=== PATIENT | female | born 1945 | race Caucasian/White ===

== ENCOUNTER 2017-10-14 08:24 | Inpatient (IN) | payer OTHER, MEDICARE ==
[~2017-10-14] VITALS: Ht 160 cm; Wt 76.8 kg
[~2017-10-14 08:24] MED LIST: ASPI81CH6 CHEW; CARV12.52 PO; LOSA25TA PO; OMEP20TA93 PO; VITA100064 PO
[2017-10-14 12:04] VITALS: BP 122/68; PULSE 71; RESP 18; TEMP 98.2; O2SAT 97
[2017-10-14] MEDS ORDERED: cloNIDine HCL 0.1 MG TAB PO PRN (12:45)
[2017-10-14] MEDS ORDERED: oxyCODONE/ACETAMINOPHEN 5 MG/325 MG TAB PO PRN (12:45)
[2017-10-14] MEDS ORDERED: METOCLOPRAMIDE HCL 10 MG/2 ML VIAL IV PUSH PRN (12:45)
[2017-10-14] MEDS ORDERED: LACTULOSE SYRUP 20 GM/30 ML CUP PO PRN (12:45)
[2017-10-14] MEDS ORDERED: SENNOSIDES 8.6 MG TAB PO PRN (12:45)
[2017-10-14] MEDS ORDERED: MAGNESIUM HYDROXIDE SUSP 30 ML CUP PO PRN (12:45)
[2017-10-14] MEDS ORDERED: BISACODYL 10 MG SUPP RECTAL PRN (12:45)
[2017-10-14] MEDS ORDERED: SODIUM CHLORIDE 0.9% FLUSH 10 ML FLUSH IV FLUSH PRN (12:45)
[2017-10-14] MEDS ORDERED: NALOXONE HCL 0.4 MG/ML AMP IV PUSH PRN (12:45)
[2017-10-14] MEDS ORDERED: MORPHINE SULFATE 2 MG/ML INJ IV PUSH PRN ×2 (12:45)
[2017-10-14] MEDS ORDERED: ONDANSETRON HCL 4 MG/2 ML VIAL IVP PRN (12:45)
[2017-10-14] MEDS ORDERED: oxyCODONE/ACETAMINOPHEN 10 MG/325 MG TAB PO PRN (12:45)
[2017-10-14] MEDS ORDERED: ACETAMINOPHEN 325 MG TAB PO PRN ×2 (12:45)
[2017-10-14] MEDS: PANTOPRAZOLE SOD 20 MG DELAYED RELEASE TAB PO SCH (13:52)
[2017-10-14] MEDS: ASPIRIN 81 MG CHEW TAB CHEW SCH (13:52)
[2017-10-14] MEDS: LOSARTAN 25 MG TAB PO SCH (13:52)
[2017-10-14] MEDS: ENOXAPARIN SODIUM 40 MG/0.4 ML SYRINGE SQ SCH (13:52)
[2017-10-14 14:36] LABS: TROPONIN I 0.03 NG/ML (0.02-0.05)
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
[2017-10-14 16:00] VITALS: PULSE 77
[2017-10-14 16:03] VITALS: BP 134/68; PULSE 78; RESP 18; TEMP 98.2; O2SAT 95
--- NOTE | 2017-10-14 16:35 | ECHRPT ---
Indication: CHEST PAIN CONCLUSIONS Normal left ventricular size with upper normal wall thickness. The left ventricular systolic functio n is normal with an estimated ejection fraction in the range of 60-65%. Normal wall motion. Normally functioning mitral valve bioprosthesis. Trace to mild mitral regurgitation. Normally functioning aortic valve bioprosthesis. There is mild tricuspid valve regurgitation. There is estimated sytolic pulmonary pressure is 60 mm Hg. BP: 122 / 68 HR: 71 Rhythm: MEASUREMENTS (Male / Female) Normal Values Technical Quality:Good 2D ECHO LV Diastolic Diameter PLAX 5.6 cm 4.2 - 5.9 / 3.9 - 5.3 cm LV Systolic Diameter PLAX 4.3 cm IVS Diastolic Thickness 1.0 cm 0.6 - 1.0 / 0.6 - 0.9 cm LVPW Diastolic Thickness 0.7 cm 0.6 - 1.0 / 0.6 - 0.9 cm LV Relative Wall Thickness 0.3 LA Systolic Diameter LX 3.9 cm 3.0 - 4.0 / 2.7 - 3.8 cm DOPPLER AV Peak Velocity 291.5 cm/s AV Peak Gradient 34.0 mmHg AV Mean Gradient 16.5 mmHg AV Velocity Time Integral 61.4 cm LVOT Peak Velocity 152.0 cm/s LVOT Peak Gradient 9.2 mmHg LVOT Velocity Time Integral 35.8 cm MV Peak Velocity 248.0 cm/s MV Peak Gradient 24.6 mmHg MV Mean Velocity 122.0 cm/s MV Mean Gradient 7.5 mmHg MV Area PHT 2.8 cm MR Peak Velocity 511.5 cm/s MR Peak Gradient 104.7 mmHg Mitral E Point Velocity 173.0 cm/s Mitral A Point Velocity 76.8 cm/s Mitral E to A Ratio 2.3 TR Peak Velocity 353.0 cm/s TR Peak Gradient 49.8 mmHg Right Atrial Pressure 10.0 mmHg Pulmonary Artery Systolic Pressu 59.8 mmHg Right Ventricular Systolic Press 59.8 mmHg FINDINGS LEFT VENTRICLE Normal left ventricular size with upper normal wall thickness. The left ventricular systolic functio n is normal with an estimated ejection fraction in the range of 60-65%. Normal wall motion. RIGHT VENTRICLE Normal right ventricular size and systolic function. LEFT ATRIUM The left atrial size is normal. RIGHT ATRIUM The right atrial size is normal. ATRIAL SEPTUM Normal atrial septal thickness without atrial level shunting by limited color doppler interrogation. AORTA The aortic root and proximal ascending aorta are normal in size on limited imaging. MITRAL VALVE Normally functioning mitral valve bioprosthesis. Trace to mild mitral regurgitation. AORTIC VALVE Normally functioning aortic valve bioprosthesis. TRICUSPID VALVE There is mild tricuspid valve regurgitation. There is estimated sytolic pulmonary pressure is 60 mm Hg. PULMONARY VALVE The pulmonary valve is not well visualized. VESSELS The inferior vena cava is normal in size. PERICARDIUM No pericardial effusion. Chencho Yañez MD (Electronically Signed) Final Date:14 October 2017 16:35
--- NOTE | 2017-10-14 16:35 | MB ---
cc: MARIA M RONQUILLO M.D. DATE OF CONSULTATION: 10/14/2017 REASON FOR CONSULTATION Chest pain, hypertension. HISTORY OF PRESENT ILLNESS The patient is a 72-year-old [place] female with a history of hypertension, hyperlipidemia, gastroesophageal reflux disease, diverticulosis, aortic and mitral valve replacements in 2013, who awoke this morning with a smothering sensation in her mid chest associated with fairly severe shortness of breath. She came to the emergency room in [place] where her blood pressure was found to be 240/140. She believes the chest discomfort, described as "tightness", lasted about 45 minutes. She denies any other recent chest pains. Her dyspnea has gradually resolved over the last few hours. In the last few days she has had possible paroxysmal nocturnal dyspnea. The patient denies dizziness, syncope, near-syncope, palpitations. Occasionally she experiences mild pedal edema. She reports compliance with medications and a no added salt diet. PAST MEDICAL HISTORY 1. Hypertension. 2. Hyperlipidemia. 3. Gastroesophageal reflux disease. 4. Diverticulosis, with a history of severe diverticulitis 2013, necessitating partial colectomy. 5. History of bioprosthetic mitral and aortic valve replacements 2013 in [place]. PAST SURGICAL HISTORY 1. Mitral and aortic bioprosthetic valve replacements 2013. 2. Partial colectomy 2013 for severe diverticulitis. 3. Cholecystectomy. 4. Total hysterectomy. MEDICATIONS Her cardiac medications at home: 1. Carvedilol 12.5 mg daily. 2. Losartan 25 mg daily. 3. Aspirin 81 mg daily. ALLERGIES IODINE AND PENICILLIN. FAMILY HISTORY There is no significant family history of early myocardial infarction. SOCIAL HISTORY The patient denies any history of alcohol or tobacco abuse. REVIEW OF SYSTEMS As in the history of present illness, otherwise negative or noncontributory. She also denies headache, visual changes, unilateral weakness or numbness, abdominal pain, melena, dyspepsia, bright red blood per rectum. PHYSICAL EXAMINATION VITAL SIGNS: Her blood pressure is 122/68 with a pulse of 70, respirations 18. GENERAL: In general she is a well-developed, well-nourished [place] female in no acute distress. HEENT: Jugular venous pressure is normal. Carotid pulses are 2+ bilaterally and without bruits. CHEST: Examination of the chest reveals clear lung mohan. CARDIAC: On cardiac examination she has a regular rhythm and rate without S3 or S4. There is a grade 2/6 systolic ejection murmur heard at the base of the heart associated with a normal S2. There may also be a separate grade 2/6 holosystolic murmur heard at the apex. ABDOMEN: On abdominal examination she has a soft, nontender abdomen. Bowel sounds are present. There is no definite hepatosplenomegaly. EXTREMITIES: Examination of extremities reveals no clubbing, cyanosis or edema. LABORATORY DATA Laboratory data includes potassium 4.9, BUN 23, creatinine 1.00, negative cardiac enzymes. WBC 7.0, hemoglobin 12.2, platelets 256. IMAGING STUDIES Chest x-ray shows increased interstitial markings. EKG Shows normal sinus rhythm, normal EKG. IMPRESSION Chest pain, possible congestive heart failure, hypertensive crisis in this 72-year-old [place] female with a history of aortic and mitral valve replacements in 2013, history of hypertension, hyperlipidemia. At this time she is asymptomatic. Cardiac enzymes are negative for myocardial infarction. According to the patient she did have a heart catheterization about 3 years ago prior to her valve surgery showing no significant coronary disease. EKG is normal. I suspect the markedly elevated blood pressures may have precipitated the congestive heart failure which is evident by exam and by symptoms. At this time she is normotensive. There is no evidence for significant renal insufficiency. There is no other evidence for underlying pheochromocytoma. RECOMMENDATIONS 1. Check a nuclear stress test in the morning. 2. Await her 2-D echo. 3. Optimize her antihypertensive regimen. 4. Will follow up as needed for any abnormalities seen on nuclear stress testing or echocardiography. 5. On discharge she can follow up with one of our [facility] cardiologists in [place] as she currently resides in [place]. MD BEATRIZ Feliciano/MARLENY /3:20 PM /3:40 PM MTDOpal
[2017-10-14] MEDS: FUROSEMIDE 20 MG/2 ML VIAL IV PUSH SCH (17:01)
[2017-10-14 19:46] VITALS: PULSE 80
[2017-10-14 19:56] VITALS: BP 130/61; PULSE 82; RESP 16; TEMP 98.2; O2SAT 96
[2017-10-14] MEDS: CARVEDILOL 12.5 MG TAB PO SCH (19:58)
[2017-10-14] MEDS: SODIUM CHLORIDE 0.9% FLUSH 10 ML FLUSH IV FLUSH SCH (19:59)
[2017-10-14] MEDS: DOCUSATE SODIUM 50 MG/SENNA 8.6 MG TAB PO SCH (19:59)
[2017-10-14 20:21] LABS: TROPONIN I LESS THAN 0.02 NG/ML (0.02-0.05)
[2017-10-14 23:45] VITALS: PULSE 61
[2017-10-15] VITALS: BP 119/56; PULSE 72; RESP 20; TEMP 97.4; O2SAT 94
[2017-10-15 02:08] LABS: BASOPHIL % 0.3 % (0.0-2.0); EOSINOPHIL % 0.1 % (0.0-4.0); HEMATOCRIT 35.4 % (35.0-46.0); HEMOGLOBIN 11.9 GM/DL (11.6-15.3); LYMPH % 34.2 % (9.0-44.0); MEAN CELL VOLUME 85.7 FL (80.0-100.0); MEAN CORPUSCULAR HEMOGLOBIN 28.8 PG (27.0-34.0); MEAN CORPUSCULAR HGB CONC 33.7 % (32.0-36.0); MEAN PLATELET VOLUME 7.4 FL (7.0-11.0); MONO % 14.1 % (0.0-8.0); MONOCYTE # 0.8 TH/MM3 (0-0.9); NEUT % 51.3 % (16.0-70.0); PLATELET COUNT 223 TH/MM3 (150-450); RED BLOOD COUNT 4.13 MIL/MM3 (4.00-5.30); RED CELL DISTRIBUTION WIDTH 14.2 % (11.6-17.2); WHITE BLOOD COUNT 5.8 TH/MM3 (4.0-11.0)
[2017-10-15 02:27] LABS: ALBUMIN 3.6 GM/DL (3.4-5.0); ALT (GPT) 29 U/L (10-53); AST (GOT) 27 U/L (15-37); BICARBONATE 28.9 MEQ/L (21.0-32.0); BLOOD UREA NITROGEN 29 MG/DL (7-18); CALCIUM 9.3 MG/DL (8.5-10.1); CHLORIDE 106 MEQ/L (98-107); GLOMERULAR FILTRATION RATE 49 ML/MIN (>89); GLUCOSE,RANDOM 91 MG/DL (74-106); MAGNESIUM 2.2 MG/DL (1.5-2.5); PHOSPHORUS 3.8 MG/DL (2.5-4.9); SODIUM (NA) 141 MEQ/L (136-145)
[2017-10-15 02:35] LABS: ALKALINE PHOSPHATASE 158 U/L (45-117); FREE T4 1.24 NG/DL (0.76-1.46); TOTAL BILIRUBIN ADULT 0.7 MG/DL (0.2-1.0); TOTAL PROTEIN 7.7 GM/DL (6.4-8.2); TROPONIN I LESS THAN 0.02 NG/ML (0.02-0.05)
[2017-10-15 03:45] VITALS: PULSE 62
[2017-10-15 04:00] VITALS: BP 116/76; PULSE 87; RESP 19; TEMP 98; O2SAT 95
--- NOTE | 2017-10-15 07:39 | PD.CARD.PN ---
Subjective Subjective Remarks No CP, dyspnea, dizziness, PND. Slept well. Objective Medications Item Value Date Time Carvedilol 12.5 mg 10/14/17 2100 (Coreg) BID/PO 10/14/171957 Furosemide 20 mg 10/14/17 1800 (Lasix Inj) BID@09,18/IV PUSH 10/14/17 1701 Losartan Potassium 25 mg 10/14/17 1245 (Cozaar) DAILY/PO 10/14/17 1352 Aspirin 81 mg 10/14/17 1245 (Aspirin Chew) DAILY/CHEW 10/14/17 1352 Current Medications Medications (Trade) Dose Ordered Sig/Dav Route Start Time Stop Time Status Last Admin (NS Flush) 2 ml UNSCH PRN IV FLUSH 10/14/17 12:45 (NS Flush) 2 ml BID IV FLUSH 10/14/17 21:00 10/14/17 19:59 (Tylenol) 650 mg Q4H PRN PO 10/14/17 12:45 (Zofran Inj) 4 mg Q6H PRN IVP 10/14/17 12:45 (Reglan Inj) 5 mg Q6H PRN IV PUSH 10/14/17 12:45 (Lovenox Inj) 40 mg Q24H SQ 10/14/17 14:00 10/14/17 13:52 (Tylenol) 650 mg Q6H PRN PO 10/14/17 12:45 10/14/17 20:08 (Percocet 5-325 Mg) 1 tab Q6H PRN PO 10/14/17 12:45 (Percocet 10-325 Mg) 1 tab Q6H PRN PO 10/14/17 12:45 (Morphine Inj) 2 mg Q3H PRN IV PUSH 10/14/17 12:45 (Morphine Inj) 4 mg Q3H PRN IV PUSH 10/14/17 12:45 (Narcan Inj) 0.4 mg UNSCH PRN IV PUSH 10/14/17 12:45 (Kailee-Colace) 1 tab BID PO 10/14/17 21:00 10/14/17 19:59 (Milk Of Magnesia Liq) 30 ml Q12H PRN PO 10/14/17 12:45 (Senokot) 17.2 mg Q12H PRN PO 10/14/17 12:45 (Dulcolax Supp) 10 mg DAILY PRN RECTAL 10/14/17 12:45 (Lactulose Liq) 30 ml DAILY PRN PO 10/14/17 12:45 (Catapres) 0.1 mg Q4H PRN PO 10/14/17 12:45 (Aspirin Chew) 81 mg DAILY CHEW 10/14/17 12:45 10/14/17 13:52 (Vitamin D3) 1,000 units DAILY PO 10/15/17 09:00 (Cozaar) 25 mg DAILY PO 10/14/17 12:45 10/14/17 13:52 (Protonix) 20 mg DAILY PO 10/14/17 13:45 10/14/17 13:52 (Coreg) 12.5 mg BID PO 10/14/17 21:00 10/14/17 19:58 (Lasix Inj) 20 mg BID@09,18 IV PUSH 10/14/17 18:00 10/14/17 17:01 Vital Signs / I&O Vital Signs Date Time Temp Pulse Resp B/P (MAP) Pulse Ox O2 Delivery O2 Flow Rate FiO2 10/15/17 04:00 98.0 87 19 116/76 (89) 95 10/15/17 03:45 62 10/15/17 00:00 97.4 72 20 119/56 (77) 94 10/14/17 23:45 61 10/14/17 19:56 98.2 82 16 130/61 (84) 96 10/14/17 19:46 80 10/14/17 16:03 98.2 78 18 134/68 (90) 95 10/14/17 16:00 77 10/14/17 12:04 98.2 71 18 122/68 (86) 97 I/O 10/14/17 10/14/17 10/14/17 10/15/17 10/15/17 10/15/17 07:00 15:00 23:00 07:00 15:00 23:00 Intake Total 360 ml 0 ml Balance 360 ml 0 ml Intake Oral 360 ml 0 ml # Voids 1 3 # Bowel Movements 0 Physical Exam GENERAL: Well developed, well nourished. No acute distress. HEENT: Jugular venous pressure is normal. CHEST: Lungs clear to auscultation bilaterally. Unlabored respiratory effort. CARDIAC: Regular rate and rhythm without S3, S4. II/ VIELKA diffusely. Normal S2. ABDOMEN: Soft, nontender, no hepatosplenomegaly. Bowel sounds present. EXTREMITIES: No clubbing, cyanosis. Trace edema. Laboratory Laboratory Tests Test 10/14/17 13:25 10/14/17 18:09 10/15/17 01:56 Total Creatine Kinase 51 U/L 41 U/L 35 U/L Troponin I 0.03 NG/ML LESS THAN 0.02 NG/ML LESS THAN 0.02 NG/ML White Blood Count 5.8 TH/MM3 Red Blood Count 4.13 MIL/MM3 Hemoglobin 11.9 GM/DL Hematocrit 35.4 % Mean Corpuscular Volume 85.7 FL Mean Corpuscular Hemoglobin 28.8 PG Mean Corpuscular Hemoglobin Concent 33.7 % Red Cell Distribution Width 14.2 % Platelet Count 223 TH/MM3 Mean Platelet Volume 7.4 FL Neutrophils (%) (Auto) 51.3 % Lymphocytes (%) (Auto) 34.2 % Monocytes (%) (Auto) 14.1 % Eosinophils (%) (Auto) 0.1 % Basophils (%) (Auto) 0.3 % Neutrophils # (Auto) 3.0 TH/MM3 Lymphocytes # (Auto) 2.0 TH/MM3 Monocytes # (Auto) 0.8 TH/MM3 Eosinophils # (Auto) 0.0 TH/MM3 Basophils # (Auto) 0.0 TH/MM3 CBC Comment DIFF FINAL Differential Comment Blood Urea Nitrogen 29 MG/DL Creatinine 1.10 MG/DL Random Glucose 91 MG/DL Total Protein 7.7 GM/DL Albumin 3.6 GM/DL Calcium Level 9.3 MG/DL Phosphorus Level 3.8 MG/DL Magnesium Level 2.2 MG/DL Alkaline Phosphatase 158 U/L Aspartate Amino Transf (AST/SGOT) 27 U/L Alanine Aminotransferase (ALT/SGPT) 29 U/L Total Bilirubin 0.7 MG/DL Sodium Level 141 MEQ/L Potassium Level 3.8 MEQ/L Chloride Level 106 MEQ/L Carbon Dioxide Level 28.9 MEQ/L Anion Gap 6 MEQ/L Estimat Glomerular Filtration Rate 49 ML/MIN Free Thyroxine 1.24 NG/DL Thyroid Stimulating Hormone 3rd Gen 0.543 uIU/ML Assessment and Plan Problem List: (1) Hypertension ICD Codes: I10 - Essential (primary) hypertension Status: Chronic Plan: BP's stable since admission. Rec continue Losartan, carvedilol, daily aspirin. OK to discharge today if nuclear stress test negative for ischemia. She can f/u with Dr. Kamar Dumont in our [place] office. (2) Congestive heart failure ICD Codes: I50.9 - Heart failure, unspecified Status: Acute Plan: Stable overnight. CHF resolved. Patient asymptomatic. Suspect her CHF precipitated by severely elevated BP's. Echo shows excellent LV function. MVR and AVR functions also normal. (3) Chest pain ICD Codes: R07.9 - Chest pain, unspecified Status: Acute Plan: No further chest tightness. Cardiac enzymes negative for IN. Rec await nuclear stress test this morning. (4) Valvular disease ICD Codes: I38 - Endocarditis, valve unspecified Status: Chronic Plan: Normal MVR and AVR function on echo. Code Status full code Discussed Condition With patient and daughter Problem Qualifiers (1) Hypertension: Qualified Codes: I10 - Essential (primary) hypertension (2) Congestive heart failure: Qualified Codes: I50.9 - Heart failure, unspecified (3) Chest pain: Qualified Codes: R07.9 - Chest pain, unspecified Chencho Yañez MD Oct 15, 2017 07:39
[2017-10-15 08:00] VITALS: PULSE 72
[2017-10-15 08:03] VITALS: BP 129/62; PULSE 68; RESP 18; TEMP 97.4; O2SAT 97
[2017-10-15] MEDS: SODIUM CHLORIDE 0.9% FLUSH 10 ML FLUSH IV FLUSH SCH (08:06)
[2017-10-15] MEDS: ASPIRIN 81 MG CHEW TAB CHEW SCH (08:06)
[2017-10-15] MEDS: FUROSEMIDE 20 MG/2 ML VIAL IV PUSH SCH (08:06)
[2017-10-15] MEDS: PANTOPRAZOLE SOD 20 MG DELAYED RELEASE TAB PO SCH (08:06)
[2017-10-15] MEDS: CARVEDILOL 12.5 MG TAB PO SCH (08:07)
[2017-10-15] MEDS: LOSARTAN 25 MG TAB PO SCH (08:07)
[2017-10-15] MEDS: DOCUSATE SODIUM 50 MG/SENNA 8.6 MG TAB PO SCH (08:07)
[2017-10-15] MEDS ORDERED: CHOLECALCIFEROL (VIT D3) 1000 UNIT TAB PO SCH (09:00)
[2017-10-15] MEDS ORDERED: CARVEDILOL 12.5 MG TAB PO SCH (09:00)
--- NOTE | 2017-10-15 10:12 | PQ ---
Physician Query Response Document PATIENT: SAMSON TONG : 1945 ADMIT DATE: 10/14/2017 11:17 AM DISCH DATE: RESPONDING PROVIDER #: CASEY QUERY TEXT: CHF Acuity and Type Congestive Heart Failure is documented in the Medical Record. Please document the type and acuity (in cludes probable or suspected) Such as: Type: -- Systolic -- Diastolic -- Combined -- Other, please specify Acuity: -- Acute -- Chronic -- Acute on chronic -- Other, please specify Also please document the underlying cause of the CHF (includes probable or suspected) Thank You ! The patient's Clinical Indicators include: The H As well Cardiology progress note dated 10/14 states: Stable overnight. CHF resolved. Patient asymptomatic. Suspect her CHF precipitated by severely e levated BP's. Echo shows excellent LV function. MVR and AVR functions also normal. Query created by: Jacquelyn Celestin on 10/15/2017 9:38 AM RESPONSE TEXT: DIASTOLIC DYSFUNCTION NOTED- ACUTE ON CHRONIC ECHO DONE EF 60-65% Medications adjusted Electronically signed by: Lucien Jasmine 10/15/2017 10:08 AM
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
[2017-10-15] MEDS ORDERED: FURO1TAB62 PO (10:18)
[2017-10-15] MEDS ORDERED: LOSA25TA PO (10:18)
[2017-10-15] MEDS ORDERED: OMEP20TA93 PO (10:18)
[2017-10-15] MEDS ORDERED: ASPI81CH6 CHEW (10:18)
[2017-10-15] MEDS ORDERED: VITA100064 PO (10:18)
[2017-10-15] MEDS ORDERED: CARV12.52 PO (10:18)
[2017-10-15] MEDS ORDERED: PRAV40TA PO (10:23)
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
[2017-10-15] MEDS ORDERED: REGADENOSON INJ 0.4 MG/5 ML SYR ONE (11:49)
[2017-10-15] MEDS: ENOXAPARIN SODIUM 40 MG/0.4 ML SYRINGE SQ SCH (14:27)
--- NOTE | 2017-10-15 14:37 | RADRPT ---
EXAM DATE/TIME: 10/15/2017 11:32 [facility] COMPARISON: No previous studies available for comparison. INDICATIONS : Chest pain with dyspnea. Congestive heart failure. DOSE: 27.2 mCi Tc99m Myoview at stress. 8.7 mCi Tc99m Myoview at rest. 0.4 mg Lexiscan STRESS SYMPTOMS: Weird feeling. EJECTION FRACTION: 70% MEDICAL HISTORY : Hypercholesterolemia. Hypertension. Gastroesophageal reflux disease. SURGICAL HISTORY : Hysterectomy. Mitral valve replacement. ENCOUNTER: Initial ACUITY: 1 day PAIN SCALE: 4/10 LOCATION: Substernal chest TECHNIQUE: The patient underwent pharmacologic stress with infusion of prescribed dose. Continuous ECG tracing was monitored during stress. Gated SPECT imaging was performed after stress and conventional SPECT i maging was performed at rest. The examination was performed on a SPECT/CT scanner, both attenuation and non-corrected datasets were reviewed. FINDINGS: DISTRIBUTION: The maximum perfused segment at stress is in the septal wall. PERFUSION STUDY: The pattern of perfusion at stress is within normal limits. GATED STUDY: There is intact wall motion and thickening without hypokinetic or dyskinetic segments. CONCLUSION: Unremarkable myocardial perfusion examination RISK CATEGORY: Low Kamar Gale MD on October 15, 2017 at 14:33 Board Certified Radiologist. This report was verified electronically.
[2017-10-15 16:07] VITALS: BP 98/55; PULSE 67; RESP 17; TEMP 97.8; O2SAT 96
[2017-10-15 16:17] LABS: HEMOGLOBIN A1C 5.5 % (4.3-6.0)
== END 2017-10-15 16:17 | disposition home or self-care (01) | DRG 304 ==
LOC: NEDDLT 11:07 → N04A 11:17
PROVIDERS: ADMIT Hospitalist; ATTEND Hospitalist
DX: I16.1 Hypertensive emergency (principal); I50.33 Acute on chronic diastolic (congestive) heart failure; R06.03 Acute respiratory distress; I11.0 Hypertensive heart disease with heart failure; I07.1 Rheumatic tricuspid insufficiency; E78.5 Hyperlipidemia, unspecified; K21.9 Gastro-esophageal reflux disease without esophagitis; F41.9 Anxiety disorder, unspecified; R07.9 Chest pain, unspecified; K57.30 Diverticulosis of large intestine without perforation or abscess without bleeding; Z95.1 Presence of aortocoronary bypass graft; Z95.3 Presence of xenogenic heart valve
CPT/HCPCS: 71010; 78452; 80053; 82550; 82948; 83036; 83735; 83880; 84100; 84439; 84443; 84484; 85025; 85379; 85610; 85730; 93005; 93017; 93306; 96374; 96375; A9502; J1650; J1940; J2785

== ENCOUNTER 2017-12-07 20:20 | Observation (INO) | payer MEDICARE, OTHER ==
[~2017-12-07 20:20] MED LIST changes: +ACETAMINOPHEN 325 MG TAB PO PRN; +BISACODYL 10 MG SUPP RECTAL PRN; +CLAR10CA3 PO; +FURO1TAB62 PO; +LACTULOSE SYRUP 20 GM/30 ML CUP PO PRN; +MAGNESIUM HYDROXIDE SUSP 30 ML CUP PO PRN; +MOME17I EACH NARE; +NALOXONE HCL 0.4 MG/ML AMP IV PUSH PRN; +ONDANSETRON HCL 4 MG/2 ML VIAL IVP PRN; +PRAV40TA PO; +SENNOSIDES 8.6 MG TAB PO PRN; +SODIUM CHLORIDE 0.9% FLUSH 10 ML FLUSH IV FLUSH PRN
[2017-12-07] MEDS: DOCUSATE SODIUM 50 MG/SENNA 8.6 MG TAB PO SCH (21:00)
[2017-12-07 21:50] VITALS: BP 118/65; PULSE 68; RESP 18; TEMP 97.4; O2SAT 96
[2017-12-07] MEDS: HEPARIN SODIUM - SQ 10,000 UNITS/ML VIAL SQ SCH (21:53)
[2017-12-07] MEDS: SODIUM CHLORIDE 0.9% FLUSH 10 ML FLUSH IV FLUSH SCH (21:53)
[2017-12-08] VITALS (9 sets, daily range): BP systolic 90–115; BP diastolic 52–73; PULSE 59–80; RESP 14–20; TEMP 96.8–97.8; O2SAT 94–96
[2017-12-08 06:40] LABS: AUTOMATED NEUTROPHIL # 2.8 TH/MM3 (1.8-7.7); BASOPHIL % 0.2 % (0.0-2.0); EOSINOPHIL % 0.1 % (0.0-4.0); HEMATOCRIT 33.3 % (35.0-46.0); HEMOGLOBIN 10.8 GM/DL (11.6-15.3); LYMPH % 31.8 % (9.0-44.0); LYMPHOCYTE # 1.6 TH/MM3 (1.0-4.8); MEAN CELL VOLUME 84.6 FL (80.0-100.0); MEAN CORPUSCULAR HEMOGLOBIN 27.3 PG (27.0-34.0); MEAN CORPUSCULAR HGB CONC 32.3 % (32.0-36.0); MEAN PLATELET VOLUME 8.1 FL (7.0-11.0); MONO % 13.6 % (0.0-8.0); MONOCYTE # 0.7 TH/MM3 (0-0.9); NEUT % 54.3 % (16.0-70.0); PLATELET COUNT 197 TH/MM3 (150-450); RED BLOOD COUNT 3.94 MIL/MM3 (4.00-5.30); RED CELL DISTRIBUTION WIDTH 13.2 % (11.6-17.2); WHITE BLOOD COUNT 5.1 TH/MM3 (4.0-11.0)
[2017-12-08 06:57] LABS: CALCIUM 9.1 MG/DL (8.5-10.1)
[2017-12-08 07:01] LABS: CREATININE 1.1 MG/DL (0.50-1.00)
[2017-12-08] MEDS: DOCUSATE SODIUM 50 MG/SENNA 8.6 MG TAB PO SCH ×2 (09:00→21:05)
[2017-12-08] MEDS: SODIUM CHLORIDE 0.9% FLUSH 10 ML FLUSH IV FLUSH SCH ×2 (09:14→21:05)
[2017-12-08] MEDS: FUROSEMIDE 40 MG/4 ML VIAL IV PUSH SCH ×2 (09:14→18:49)
[2017-12-08] MEDS: HEPARIN SODIUM - SQ 10,000 UNITS/ML VIAL SQ SCH ×2 (09:14→21:05)
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
[2017-12-08 11:13] LABS: TROPONIN I LESS THAN 0.02 NG/ML (0.02-0.05)
--- NOTE | 2017-12-08 11:26 | RADRPT ---
EXAM DATE/TIME: 12/08/2017 10:25 [facility] COMPARISON: CHEST PA & LAT, December 07, 2017, 16:11. INDICATIONS : Short of breath and chest pain for 5 days. DOSE: 8.7 mCi Tc99m MAA IV 0.95 mCi Tc99m DTPA aerosol MEDICAL HISTORY : Hypertension. Gastroesophageal reflux disease. SURGICAL HISTORY : Hysterectomy. Cholecystectomy. Valve replacement. ENCOUNTER: Initial ACUITY: 4 - 6 days PAIN SCALE: 2/10 LOCATION: Bilateral chest TECHNIQUE: Following five minutes of tidal breathing of DTPA aerosol, planar images of the lungs were performed in eight projections. The patient was then injected with MAA, and eight-view perfusion scan was perf ormed. FINDINGS: There are no focal segmental or subsegmental perfusion abnormalities identified. Patchy nonsegmental defects are present. Ventilation is also mildly heterogeneous with some swallowed tracer and central deposition of tracer CONCLUSION: Low probability scan for pulmonary embolism Moncho Henry MD on December 08, 2017 at 11:21 Board Certified Radiologist. This report was verified electronically.
[2017-12-08] MEDS ORDERED: cefTRIAXone INJ 1,000 MG in SODIUM CHLORIDE 0.9% INJ 100 ML IV SCH (12:00)
[2017-12-08] MEDS: LEVOFLOXACIN 500 MG TAB PO SCH (15:57)
--- NOTE | 2017-12-08 18:43 | EKG ---
Date Performed: 12/08/2017 Time Performed: 10:25:49 PTAGE: 72 years EKG: Sinus rhythm WITH FIRST DEGREE AV BLOCK ABNORMAL ECG PREVIOUS TRACING :12/07/17 @1558 DOCTOR: Apple Wheeler Interpretating Date/Time 12/08/2017 18:41:17
[2017-12-08] MEDS: CARVEDILOL 12.5 MG TAB PO SCH (21:05)
[2017-12-09] VITALS: BP 115/63; PULSE 71; RESP 20; TEMP 97.7; O2SAT 95
[2017-12-09] MEDS ORDERED: PANTOPRAZOLE SOD 20 MG DELAYED RELEASE TAB PO ONE (02:00)
[2017-12-09 04:00] VITALS: BP 110/59; PULSE 67; RESP 20; TEMP 96; O2SAT 96
[2017-12-09 07:50] VITALS: BP 111/67; PULSE 71; RESP 20; TEMP 97.6; O2SAT 96
[2017-12-09 08:40] VITALS: PULSE 70
[2017-12-09] MEDS ORDERED: CHOLECALCIFEROL (VIT D3) 1000 UNIT TAB PO SCH (09:00)
[2017-12-09] MEDS ORDERED: ASPIRIN 81 MG CHEW TAB CHEW SCH (09:00)
[2017-12-09] MEDS ORDERED: PANTOPRAZOLE SOD 20 MG DELAYED RELEASE TAB PO SCH (09:00)
[2017-12-09] MEDS ORDERED: PRAVASTATIN SOD 40 MG TAB PO SCH (09:00)
[2017-12-09] MEDS ORDERED: FLUTICASONE PROPIONATE 50 MCG/ACT 16 GM NASAL SPRAY EACH NARE SCH (09:00)
[2017-12-09] MEDS ORDERED: LOSARTAN 25 MG TAB PO SCH (09:00)
[2017-12-09] MEDS ORDERED: LORATADINE 10 MG TAB PO SCH (09:00)
--- NOTE | 2017-12-09 09:52 | HHI.PR ---
Subjective Remarks Follow-up dyspnea and chest pain. Patient seen and examined, lying in bed states she is at a problem with reflux and burning in her esophagus. Requesting PPI from home. Patient states dyspnea is improved, denies any chest pain. Vital signs are stable. Afebrile. Tolerating p.o. intake well, denies any nausea or vomiting. Objective Vitals Vital Signs Date Time Temp Pulse Resp B/P (MAP) Pulse Ox O2 Delivery O2 Flow Rate FiO2 12/09/17 04:00 96.0 67 20 110/59 (76) 96 12/09/17 00:00 97.7 71 20 115/63 (80) 95 12/08/17 23:00 70 12/08/17 21:41 95 21 12/08/17 20:00 97.2 71 20 115/69 (84) 95 12/08/17 16:00 97.2 72 14 107/73 (84) 94 12/08/17 15:00 80 12/08/17 12:00 97.4 75 16 101/52 (68) 96 I/O 12/08/17 12/08/17 12/08/17 12/09/17 12/09/17 12/09/17 07:00 15:00 23:00 07:00 15:00 23:00 Intake Total 240 ml 300 ml 480 ml Balance 240 ml 300 ml 480 ml Intake Oral 240 ml 300 ml 480 ml # Voids 0 4 # Bowel Movements 0 Result Diagram: 12/08/17 0555 12/08/17 0555 Imaging Last Impressions Lung Scan-V Nuclear Medicine 12/08/17 0000 Signed Impressions: Service Date/Time: Friday, December 08, 2017 10:25 - CONCLUSION: Low probability scan for pulmonary embolism Moncho Henry MD Objective Remarks GENERAL: Well-developed, well-nourished patient in [facility]. SKIN: Warm and dry. No rash. HEAD: Normocephalic. Atraumatic. EYES: Pupils equal and round. No scleral icterus. No injection or drainage. ENT: No nasal bleeding or discharge. Mucous membranes pink and moist. NECK: Supple. Trachea midline. CARDIOVASCULAR: Regular rate and rhythm. S1, S2 noted. No murmur appreciated. RESPIRATORY: No accessory muscle use. Clear to auscultation. Breath sounds equal bilaterally. GASTROINTESTINAL: Abdomen soft, non-tender, nondistended. Normoactive bowel sounds x4. MUSCULOSKELETAL: No obvious deformities. Extremities without clubbing, cyanosis , or edema. NEUROLOGICAL: Awake and alert. No obvious cranial nerve deficits. Motor grossly within normal limits. 5/5 muscle strength in bilateral upper and lower extremities. Normal speech. PSYCHIATRIC: Appropriate mood and affect; insight and judgment normal. A/P Problem List: (1) Acute exacerbation of CHF (congestive heart failure) ICD Code: I50.9 - Heart failure, unspecified Plan: BNP elevated on presentation. CXR reviewed showing alveolar pulmonary edema. D-dimer elevated. Patient underwent VQ scan showing low probability scan for pulmonary embolism. Monitor intake and output closely. Continue Lasix 40 mg IV BID. Patient educated on avoidance of sodium. CHF education provided. Dyspnea improved. (2) Chest pain ICD Code: R07.9 - Chest pain, unspecified Status: Acute Plan: Serial EKGs and serial troponins ordered for ruling out ACS purposes. Troponin flat. Continue aspirin. Chest pain has resolved. EKG reviewed showing normal sinus rhythm with first-degree heart block, controlled heart rate, no ST changes. Continue cardiac telemetry rule out any arrhythmias. Monitor closely. Chest pain likely due to CHF exacerbation. Supportive care. Patient underwent cardiac stress test last September. Chest pain has resolved (3) Hypertension ICD Code: I10 - Essential (primary) hypertension Status: Chronic Plan: Continue home medications. Including Cozaar, Coreg and aspirin. Monitor BP trends. (4) Hyperlipidemia ICD Code: E78.5 - Hyperlipidemia, unspecified Plan: Continue home medications. (5) Abnormal urinalysis ICD Code: R82.90 - Unspecified abnormal findings in urine Plan: Urine culture showing immature growth, reading to me. Continue Levaquin. DVT prophylaxis: SCDs. Heparin. Assessment and Plan Patient complaint of abdominal pain and GERD, KUB ordered, reviewed and unremarkable. Given GI cocktail with improvement seen. Tolerating p.o. intake , denies any abdominal pain, nausea or vomiting. Dyspnea improved. Discharge Planning Possible discharge today if improvement with abdominal pain and reflux. Marge Kapadia Dec 09, 2017 09:52
[2017-12-09] MEDS ORDERED: ALUMINUM/MAGNESIUM/SIMETH 30 ML CUP PO ONE (10:00)
[2017-12-09 10:29] VITALS: O2SAT 95
[2017-12-09] MEDS: FUROSEMIDE 40 MG/4 ML VIAL IV PUSH SCH (10:36)
[2017-12-09] MEDS: SODIUM CHLORIDE 0.9% FLUSH 10 ML FLUSH IV FLUSH SCH (10:36)
[2017-12-09] MEDS: LEVOFLOXACIN 500 MG TAB PO SCH (10:37)
[2017-12-09] MEDS: DOCUSATE SODIUM 50 MG/SENNA 8.6 MG TAB PO SCH (10:37)
[2017-12-09] MEDS: CARVEDILOL 12.5 MG TAB PO SCH (10:38)
[2017-12-09] MEDS: HEPARIN SODIUM - SQ 10,000 UNITS/ML VIAL SQ SCH (10:51)
--- NOTE | 2017-12-09 11:38 | RADRPT ---
EXAM DATE/TIME: 12/09/2017 10:59 [facility] COMPARISON: No previous studies available for comparison. INDICATIONS : Abdominal pain MEDICAL HISTORY : Hypertension. Gastroesophageal reflux disease. SURGICAL HISTORY : Hysterectomy. Cholecystectomy. Valve replacement ENCOUNTER: Subsequent ACUITY: 1 week PAIN SCORE: 5/10 LOCATION: Abdomen FINDINGS: Supine view of the abdomen was performed. The abdominal bowel gas pattern is normal. No abnormal ma sses, calcifications, or organomegaly is seen. Degenerative changes in the spine and hips.. CONCLUSION: Nonspecific, benign abdomen appearance. Moncho Henry MD on December 09, 2017 at 11:34 Board Certified Radiologist. This report was verified electronically.
[2017-12-09 11:50] VITALS: BP 97/51; PULSE 73; RESP 20; TEMP 97.1; O2SAT 94
--- NOTE | 2017-12-09 13:07 | HHI.DCPOC ---
Discharge Care Plan Diagnosis: (1) Acute exacerbation of CHF (congestive heart failure) (2) GERD (gastroesophageal reflux disease) (3) Hyperlipidemia Goals to Promote Your Health * To prevent worsening of your condition and complications * To maintain your health at the optimal level Directions to Meet Your Goals Take your medications as prescribed Follow your dietary instruction Follow activity as directed Keep your appointments as scheduled Take your immunizations and boosters as scheduled If your symptoms worsen call your PCP, if no PCP go to Urgent Care Center or Emergency Room Smoking is Dangerous to Your Health. Avoid second hand smoke Call the 24-hour hour crisis hotline for domestic abuse at Marge Kapadia Dec 09, 2017 13:07
[2017-12-09] MEDS ORDERED: MAGN30S PO (13:09)
[2017-12-09] MEDS ORDERED: POTA10TA2 PO (13:09)
[2017-12-09] MEDS ORDERED: FURO1TAB60 PO (13:09)
== END 2017-12-09 15:12 | disposition home or self-care (01) ==
LOC: PHEDDLT 20:20 → PH3A 20:21 → N04B 12-09 14:17 → PH3A 12-09 14:17
PROVIDERS: ADMIT Hospitalist; ATTEND Hospitalist
DX: I11.0 Hypertensive heart disease with heart failure (principal); I50.9 Heart failure, unspecified; I44.0 Atrioventricular block, first degree; E78.5 Hyperlipidemia, unspecified; R82.90 Unspecified abnormal findings in urine; R06.02 Shortness of breath; R42 Dizziness and giddiness; I25.10 Atherosclerotic heart disease of native coronary artery without angina pectoris; K21.9 Gastro-esophageal reflux disease without esophagitis; R94.31 Abnormal electrocardiogram [ECG] [EKG]; Z95.2 Presence of prosthetic heart valve; Z79.899 Other long term (current) drug therapy; Z79.82 Long term (current) use of aspirin
CPT/HCPCS: 71046; 74018; 78582; 80048; 80053; 81001; 82550; 83880; 84484; 85025; 85379; 87086; 93005; 96372; 96374; 97162; 99285; A9540; A9567; G0378; G8987; G8988; J1644; J1940